=== PATIENT | male | born 1995 | race Caucasian/White ===

== ENCOUNTER 2019-08-13 01:55 | Emergency (ER) | payer SELFPAY ==
[2019-08-13 02:12] VITALS: BP 110/65; PULSE 75; RESP 18; TEMP 36.3; O2SAT 100
--- NOTE | 2019-08-13 02:22 | ED.GENADULT ---
HPI - General Adult General Chief complaint: Abdominal Pain Stated complaint: abd pain, drug and alcohol use Time Seen by Provider: 08/13/19 02:04 Source: patient and RN notes reviewed Mode of arrival: ambulatory Limitations: no limitations History of Present Illness HPI narrative: Pt is a 24 y/o male who presents to the ED with c/o periumbilical pain starting this evening. He notes that he did cocaine with several people he had just met around 15:00 yesterday afternoon. Pt states that he believes the cocaine may have been laced with something else. He notes that later in the afternoon, he began feeling odd. Pt states that he tried drinking half of a fifth of vodka this evening in order to counteract the effects of the drug. He notes that after drinking, he developed pain in his periumbilical region, weakness, chest pain, nausea, and body aches. Pt describes his ABD pain as throbbing. He notes that he has had one episode of emesis this evening. Pt denies any use of heroine or methamphetamine. MD complaint: ABD Pain Location: abdomen Quality: other (throbbing) Associated symptoms: chest pain, nausea/vomiting, shortness of breath, weakness and other (body aches) Related Data Allergies Allergy/AdvReac Type Severity Reaction Status Date / Time No Known Allergies Allergy Verified 08/13/19 02:23 Review of Systems Review of Systems: Narrative: CONSTITUTIONAL: Denies fever, chills, or sweats. Reports body aches and weakness. CARDIOVASCULAR: Denies palpitations or edema. Reports chest pain. RESPIRATORY: Denies cough or shortness of breath. GASTROINTESTINAL: Reports periumbilical pain, nausea, and vomiting. Denies diarrhea. NEUROLOGIC: Denies headache or numbness. : denies hematuria or dysuria SKIN: denies rash or bruising All systems reviewed & are unremarkable except as noted in HPI and below PMFSH Past Medical History Medical History (Updated 08/13/19 @ 06:13 by Misa Escobedo MD) Healthy adult male (Acute) Surgical History Surgical History (Updated 08/13/19 @ 02:42 by Raman Laws) No history of previous surgery (Acute) Social History Social History (Updated 08/13/19 @ 02:39 by Raman Laws) Substance use type: crack/cocaine Gender identity (if verbalized by the patient): Male Exam Narrative: Exam Narrative: GENERAL: Anxious appearing, well-nourished, and in no acute distress. HEAD: Normocephalic, atraumatic. EYES: PERRLA and EOMI. ENT: Nares clear, no rhinorrhea or epistaxis. Mucous membranes moist. NECK: Supple. CHEST: Clear to auscultation. No respiratory distress. No chest wall tenderness. HEART: Regular rate and rhythm. No murmur heard. Normal peripheral pulses. ABDOMEN: Soft, nontender on exam, no guarding, non rigid, nondistended, normal active bowel sounds. EXTREMITIES: Normal range of motion. No edema. SKIN: Warm, dry, no rash. NEURO: No focal deficits. Alert and oriented PSYCH: Anxious. Course Course Emergency Course: Patient presenting for evaluation of abdominal pain after using cocaine, experiencing generally unwell, and then drinking alcohol. The time of presentation, patient is anxious, but otherwise vital signs are stable. His breath sounds are clear and equal bilaterally. He has no chest wall tenderness. Despite saying he has abdominal pain, he has no pain on exam, he has no guarding, and endorses no pain with palpation of the abdomen. Patient's EKG without acute ischemic changes. Laboratory results show a leukocytosis which may be leukemoid reaction from the cocaine and alcohol use. Patient does have a acidosis with an anion gap, that closed after administration of IV fluids. Patient's low bicarb is likely due to his alcohol use as patient otherwise has stable vital signs, tolerating oral intake. Patient is not agitated or confused. He is not in DKA given his sugar is normal, but this presentation more consistent with AKAl. Patient's 2 troponins are normal. Patient felt much improved, had
--- NOTE | 2019-08-13 02:25 | ECG_ITS ---
Measurements Intervals [place] Rate: 87 P: 64 GA: 148 QRS: 84 QRSD: 89 T: 68 QT: 361 QTc: 435 Interpretive Statements SINUS RHYTHM NORMAL ECG Electronically Signed On 08-13-2019 7:05:45 BILL [employer] by Maurizio Figueroa D.O.
[2019-08-13] MEDS: ONDANSETRON INJ 4 MG/2 ML VIAL IV PUSH ×2 (02:37→05:38)
[2019-08-13] MEDS: LORAZEPAM INJ 2 MG/ML VIAL 0.5 MG IV PUSH (02:37)
[2019-08-13] MEDS: SODIUM CHLORIDE 0.9% IV 1,000 ML 999 ML IV CONT ×2 (02:37→03:45)
[2019-08-13 02:54] LABS: Basophils Percent Auto 0.1 % (0.2-1.2); Hematocrit 46.8 % (42.0-52.0); Hemoglobin 15.8 g/dL (14.0-18.0); Immature Granulocyte Absolute 0.07 K/mm3 (0.00-0.031); Immature Granulocyte Percent A 0.4 % (0-0.5); Lymphocytes Absolute Auto 2.48 K/mm3 (0.9-3.2); Mean Corpuscular HGB Conc 33.8 g/dl (32-36); Mean Corpuscular Hemoglobin 29.6 pg (26-34); Mean Corpuscular Volume 87.8 fl (80-100); Mean Platelet Volume 8.9 fl (7.4-10.4); Monocytes Percent Auto 6.3 % (2.6-8.5); Neutrophils Absolute Auto 12.9 K/mm3 (1.3-6.7); Neutrophils Percent Auto 78.2 % (45.5-73.1); Platelet Count Result 356 k/mm3 (150-375); Red Blood Count 5.33 M/mm3 (4.6-6.20); Red Cell Distribution Width 12.8 % (11.5-14.5); White Blood Count 16.5 K/mm3 (4.5-10.0)
[2019-08-13 02:57] LABS: Add Urine Microscopic? YES; Appearance Urine Clear (Clear); Bilirubin Urine Negative (Negative); Blood Urine 2+ (Negative); Color Urine Yellow (Yellow); Glucose Urine UA Negative (Negative); Ketones Urine 2+ mg/dL (Negative); Leukocyte Esterase Ur Negative LEU/UL (Negative); Mucus Urine Rare /lpf; Nitrate Urine Negative (Negative); Protein Urine 2+ mg/dL (Negative); RBC Urine 0-2 /hpf (0-2); Specific Grav Ur 1.026 (1.001-1.035); Squamous Epithelial Cell Urine Rare /hpf (Few); Urobilinogen Urine Negative mg/dL (<2.0)
[2019-08-13 03:00] VITALS: BP 114/64; PULSE 89; RESP 17; O2SAT 97
[2019-08-13 03:06] LABS: Barbiturate Screen Urine Negative (Negative); Benzodiazepines Screen Urine Negative (Negative)
[2019-08-13 03:13] LABS: Amphetamine Screen Urine Negative (Negative); Cannabinoid Screen Urine Positive (Negative); Cocaine Screen Urine Positive (Negative); Methadone Screen Urine Negative (Negative); Opiate Screen Urine Negative (Negative); Phencyclidine Screen Urine Negative (Negative); Troponin I < 0.012 ng/mL (0.000-0.034)
[2019-08-13 03:27] LABS: Albumin Level 5.5 g/dL (3.5-5.1); Alkaline Phosphatase 100 U/L (38-126); Aspartate Amino Transferase 34 U/L (17-59); Bilirubin,Total 1.2 mg/dL (0.2-1.3); Blood Urea Nitrogen 17 mg/dL (9-20); Carbon Dioxide 20 mmol/L (22-30); Chloride 96 mmol/L (98-107); Estimated CRCL calculation 102 ml/min; Estimated Glomerular Filt Rate > 60; Glucose 77 mg/dL (75-110); Lipase 76 U/L (23-300); Potassium 3.8 mmol/L (3.4-5.0); Sodium 137 mmol/L (137-145)
[2019-08-13 03:30] VITALS: BP 115/64; PULSE 93; RESP 18; O2SAT 93
[2019-08-13 04:03] LABS: Alanine Aminotransferase 31 U/L (4-50)
[2019-08-13 04:30] VITALS: BP 90/57; PULSE 89; RESP 16
[2019-08-13 05:34] LABS: Blood Urea Nitrogen 14 mg/dL (9-20); Calcium 8.6 mg/dL (8.4-10.2); Carbon Dioxide 18 mmol/L (22-30); Chloride 103 mmol/L (98-107); Estimated CRCL calculation 126 ml/min; Estimated Glomerular Filt Rate > 60; Glucose 63 mg/dL (75-110); Potassium 3.8 mmol/L (3.4-5.0); Sodium 137 mmol/L (137-145)
[2019-08-13 05:40] VITALS: BP 94/51; PULSE 90; RESP 16; O2SAT 97
[2019-08-13 05:40] LABS: Troponin I < 0.012 ng/mL (0.000-0.034)
== END 2019-08-13 06:00 | disposition home or self-care (01) ==
PROVIDERS: Emergency Provider Emergency Medicine
DX: F14.10 Cocaine abuse, uncomplicated (principal); F10.988 Alcohol use, unspecified with other alcohol-induced disorder; E87.2 Acidosis; R10.33 Periumbilical pain; Y90.9 Presence of alcohol in blood, level not specified
CPT/HCPCS: 36415; 80048; 80053; 80307; 81001; 83690; 84484; 85025; 87086; 93005; 96361; 96374; 96375; 96376; 99284; J2060; J2405; J7030